=== PATIENT | male | born 1975 | race Hispanic/Latino ===

== ENCOUNTER 2018-09-15 08:14 | Emergency (ER) | payer BC ==
[2018-09-15] MEDS ORDERED: NA CHLORIDE 0.9% 1,000 ML ONE (09:11)
[2018-09-15] MEDS ORDERED: MECLIZINE HCL 12.5 MG TAB ONE (09:11)
--- NOTE | 2018-09-15 09:22 | RAD REPORT ---
EXAM DESCRIPTION: CT - Head Brain Wo Cont - 09/15/2018 9:00 am CLINICAL HISTORY: DIZZINESS Headache, drowsiness, dizziness and syncope. COMPARISON: No comparisons TECHNIQUE: All CT scans are performed using dose optimization technique as appropriate and may inclu de automated exposure control or mA/KV adjustment according to patient size. FINDINGS: No intracranial hemorrhage, hydrocephalus or extra-axial fluid collection.Mild generalized brain atrophy noted.No areas of brain edema or evidence of midline shift. The paranasal sinuses and mastoids are clear. The calvarium is intact. IMPRESSION: No acute intracranial abnormality.
[2018-09-15 09:37] LABS: Absolute Lymphocytes (CBC) 1.6 K/uL (0.7-4.9); Absolute Monocytes 0.5 K/uL (0.1-1.3); Absolute Neutrophil 7.2 K/uL (1.8-8.0); Basophils % 1.3 % (0-1.3); Eosinophils % 1.2 % (0-4.4); Lymphocytes % 16.9 % (15.3-44.8); MPV 9.6 fL (7.6-11.3); Monocytes % 5.3 % (3.3-12.3); RBC Red Blood Cell Count 5.74 M/uL (4.33-5.43)
[2018-09-15 09:59] LABS: BUN Blood Urea Nitrogen 19 mg/dL (7-18); Bicarbonate 27 mmol/L (21-32); Glucose Level 171 mg/dL (74-106); Potassium 3.9 mmol/L (3.5-5.1); Sodium Level 138 mmol/L (136-145); Troponin (Emerg Dept Use Only) < 0.02 ng/mL (0.0-0.045)
--- NOTE | 2018-09-15 10:48 | EDPHYS ---
Physician Documentation [facility] Name: Naresh Deleon Jr Age: 43 yrs Sex: Male : 1975 Arrival Date: 09/15/2018 Time: 08:17 Bed 15 Private MD: Edmund Leo ED Physician Von Bradshaw HPI: 09/15 08:53 This 43 yrs old Male presents to ER via Ambulatory with complaints of High rn Blood Sugar, Dizziness. 08:53 The patient presents with lightheadedness, sense of spinning. Onset: The rn symptoms/episode began/occurred last night. Modifying factors: The symptoms are alleviated by nothing, the symptoms are aggravated by movement of head, standing up, changing position. Severity of symptoms: At their worst the symptoms were mild in the emergency department the symptoms have improved. The patient has not experienced similar symptoms in the past. Reports started feeling dizzy last night, got better, woke up and dizzy again when getting out of bed, lasts less than 1 minute, not assoc with other neurological problems, no head trauma, reports blood sugar a little high, has been drinking water, no fever. Symptoms intermittent. No chest pain/sob. . Historical: - Allergies: 08:26 No Known Allergies; ss - Home Meds: 08:26 Ramipril Oral [Active]; pravastatin oral oral [Active]; Metformin Oral [Active]; ss Glimepiride Oral [Active]; Jardiance oral oral [Active]; Zyrtec Oral [Active]; aspirin 81 mg Oral TbEC 1 tab once daily [Active]; Nexium Oral [Active]; - PMHx: 08:26 Diabetes - NIDDM; Hypertension; High Cholesterol; GERD; ss - PSHx: 08:26 None; ss - Immunization history:: Adult Immunizations up to date. - Social history:: Smoking status: Patient/guardian denies using tobacco, the patient reports quitting approximately .25 years ago. - Ebola Screening: : Patient denies exposure to infectious person Patient denies travel to an Ebola-affected area in the 21 days before illness onset. - Family history:: not pertinent. - Hospitalizations: : No recent hospitalization is reported. ROS: 08:53 Constitutional: Negative for fever, chills, and weight loss, Eyes: Negative for injury, rn pain, redness, and discharge, Neck: Negative for injury, pain, and swelling, Cardiovascular: Negative for chest pain, palpitations, and edema, Respiratory: Negative for shortness of breath, cough, wheezing, and pleuritic chest pain, Abdomen/GI: Negative for abdominal pain, vomiting, diarrhea, and constipation, MS/Extremity: Negative for injury and deformity, Skin: Negative for injury, rash, and discoloration, Neuro: Negative for headache, numbness, tingling, and seizure. Exam: 08:53 Constitutional: This is a well developed, well nourished patient who is awake, alert, rn and in no acute distress. Head/Face: Normocephalic, atraumatic. Eyes: Pupils equal round and reactive to light, extra-ocular motions intact. Lids and lashes normal. Conjunctiva and sclera are non-icteric and not injected. Cornea within normal limits. Periorbital areas with no swelling, redness, or edema. ENT: dry MM Cardiovascular: Regular rate and rhythm. No pulse deficits. Respiratory: Lungs have equal breath sounds bilaterally, clear to auscultation. No increased work of breathing, no retractions or nasal flaring. Abdomen/GI: Soft, non-tender, with normal bowel sounds. No distension or tympany. No guarding or rebound. No evidence of tenderness throughout. Skin: Warm, dry MS/ Extremity: Pulses equal, no cyanosis. Neurovascular intact. Full, normal range of motion. Equal circumference. Neuro: Awake and alert, GCS 15, oriented to person, place, time, and situation. Cranial nerves II-XII grossly intact. Motor strength 5/5 in all extremities. Sensory grossly intact. Cerebellar exam normal. Normal gait. 09:36 ECG was reviewed by the Attending Physician. rn Vital Signs: 08:26 BP 171 / 98; Pulse 92; Resp 16; Temp 98.2(TE); Pulse Ox 99% on R/A; Weight 99.34 kg; ss Height 5 ft. 5 in. (165.10 cm); Pain 0/10; 10:05 BP 155 / 92; Pulse 82; Resp 18; Pulse Ox 98% on R/A; ph 10:57 BP 164 / 91; Pulse 75; Resp 18; Temp 98.0; Pulse Ox 100% on R/A; ph 08:26 Body Mass Index 36.44 (99.34 kg, 165.10 cm) MDM: 08:38 Patient medically screened. rn 09:33 ED course: CT head negative, ambulatory without difficulty to bathroom.. rn 10:45 Differential diagnosis: generalized weakness, hypovolemia, idiopathic dizziness, rn vertigo. Data reviewed: vital signs, nurses notes, lab test result(s), EKG, radiologic studies, CT scan, and as a result, I will discharge patient. Counseling: I had a detailed discussion with the patient and/or guardian regarding: the historical points, exam findings, and any diagnostic results supporting the discharge/admit diagnosis, lab results, radiology results, the need for outpatient follow up, to return to the emergency department if symptoms worsen or persist or if there are any questions or concerns that arise at home. Response to treatment: the patient's symptoms have markedly improved after treatment, and as a result, I will discharge patient. Special discussion: I discussed with the patient/guardian in detail that at this point there is no indication for admission to the hospital. It is understood, however, that if the symptoms persist or worsen the patient needs to return immediately for re-evaluation. Based on the history and exam findings, there is no indication for further emergent testing or inpatient evaluation. I discussed with the patient/guardian the need to see the primary care provider for further evaluation of the symptoms. ED course: Pt ambulatory, normal neuro exam, ct head negative, + mild dehydration and mild hyperglycemia, will dc home with meclizine given most likely vertigo vs dehydration.. 09/15 08:49 Order name: CBC with Diff; Complete Time: 10:15 rn 09/15 08:49 Order name: Basic Metabolic Panel; Complete Time: 10:15 rn 09/15 08:49 Order name: CT Head Brain wo Cont; Complete Time: 09:33 rn 09/15 08:49 Order name: Troponin (emerg Dept Use Only); Complete Time: 10:15 rn 09/15 08:27 Order name: EKG; Complete Time: 08:27 ss 09/15 08:27 Order name: Glucose Level; Complete Time: 08:27 09/15 08:49 Order name: IV Start; Complete Time: 09:42 rn EC:36 Rate is 79 beats/min. Rhythm is regular. QRS Bradley is Normal. OK interval is normal. QRS rn interval is normal. QT interval is normal. No Q waves. T waves are Inverted in lead aVL. No ST changes noted. Clinical impression: NSR w/ Non-specific ST/T Changes. Interpreted by me. Reviewed by me. Administered Medications: 09:15 Drug: Meclizine 50 mg Route: PO; ph 10:58 Follow up: Response: No adverse reaction ph 09:20 Drug: NS 0.9% 1000 ml Route: IV; Rate: 1000 ml; Site: right hand; ph 10:58 Follow up: Response: No adverse reaction; IV Status: Completed infusion; IV Intake: ph 1000ml Point of Care Testing: Blood Glucose: 08:27 Blood Glucose: 174 mg/dL; Ranges: Critical Glucose Levels:Adult <50 mg/dl or >400 mg/dl <40 mg/dl or >180 mg/dl Disposition: 09/15/18 10:47 Discharged to Home. Impression: Vertigo, Hyperglycemia, unspecified, Dizziness and giddiness, Dehydration. - Condition is Stable. - Discharge Instructions: Dehydration, Adult, Dizziness, Hyperglycemia. - Prescriptions for Meclizine 25 mg Oral Tablet - take 1 tablet by ORAL route every 8 hours As needed; 30 tablet. - Medication Reconciliation Form, Thank You Letter, Antibiotic Education, Prescription Opioid Use, Work release form form. - Follow up: Private Physician; When: As needed; Reason: Recheck today's complaints, Re-evaluation by your physician. - Problem is new. - Symptoms have improved. Signatures: Dispatcher [employer] EDVon Redmond MD MD rn Smirch, Shelby, RN RN Becca Holt RN RN ph Corrections: (The following items were deleted from the chart) 11:09 10:47 09/15/2018 10:47 Discharged to Home. Impression: Vertigo; Hyperglycemia, ph unspecified; Dizziness and giddiness; Dehydration. Condition is Stable. Forms are Medication Reconciliation Form, Thank You Letter, Antibiotic Education, Prescription Opioid Use. Follow up: Private Physician; When: As needed; Reason: Recheck today's complaints, Re-evaluation by your physician. Problem is new. Symptoms have improved. rn
--- NOTE | 2018-09-15 10:48 | ER ---
Nurse's Notes [facility] Name: Naresh Deleon Jr Age: 43 yrs Sex: Male : 1975 Arrival Date: 09/15/2018 Time: 08:17 Bed 15 Private MD: Edmund Leo Diagnosis: Vertigo;Hyperglycemia, unspecified;Dizziness and giddiness;Dehydration Presentation: 09/15 08:22 Presenting complaint: Patient states: Dizziness, sweating and nausea that occurred when ss patient woke up at 0530 this morning, lasting approximately 30 minutes. Pt is diabetic so he checked his sugar twice this morning (226, 208). Pt reports that he feels much better, but is still dizzy especially when he turns his head or repositioning quickly which quickly resolves. Transition of care: patient was not received from another setting of care. Onset of symptoms was September 15, 2018. Risk Assessment: Do you want to hurt yourself or someone else? Patient reports no desire to harm self or others. Initial Sepsis Screen: Does the patient meet any 2 criteria? No. Patient's initial sepsis screen is negative. Does the patient have a suspected source of infection? No. Patient's initial sepsis screen is negative. Care prior to arrival: None. 08:22 Method Of Arrival: Ambulatory ss 08:22 Acuity: IVETT 3 ss Historical: - Allergies: 08:26 No Known Allergies; ss - Home Meds: 08:26 Ramipril Oral [Active]; pravastatin oral oral [Active]; Metformin Oral [Active]; ss Glimepiride Oral [Active]; Jardiance oral oral [Active]; Zyrtec Oral [Active]; aspirin 81 mg Oral TbEC 1 tab once daily [Active]; Nexium Oral [Active]; - PMHx: 08:26 Diabetes - NIDDM; Hypertension; High Cholesterol; GERD; ss - PSHx: 08:26 None; ss - Immunization history:: Adult Immunizations up to date. - Social history:: Smoking status: Patient/guardian denies using tobacco, the patient reports quitting approximately .25 years ago. - Ebola Screening: : Patient denies exposure to infectious person Patient denies travel to an Ebola-affected area in the 21 days before illness onset. - Family history:: not pertinent. - Hospitalizations: : No recent hospitalization is reported. Screenin:05 Abuse screen: Denies threats or abuse. Denies injuries from another. Nutritional ph screening: No deficits noted. Tuberculosis screening: No symptoms or risk factors identified. Fall Risk None identified. Assessment: 09:00 General: Appears in no apparent distress. comfortable, well groomed, Behavior is calm, ph cooperative, appropriate for age, Denies fever, feeling ill. Pain: Complains of pain in forehead. Neuro: Level of Consciousness is awake, alert, obeys commands, Oriented to person, place, time, situation, Splitter Head are equal bilaterally Moves all extremities. Full function Gait is steady, Speech is normal, Reports dizziness, since 0330 headache frontal area. Cardiovascular: Capillary refill < 3 seconds in bilateral fingers Patient's skin is warm and dry. Respiratory: Airway is patent Respiratory effort is even, unlabored. 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 Derm: Skin is intact, is healthy with good turgor, Skin is pink, warm \T\ dry. Musculoskeletal: Circulation, motion, and sensation intact. Range of motion: intact in all extremities. 10:00 Reassessment: Patient appears in no apparent distress at this time. Patient and/or ph family updated on plan of care and expected duration. Pain level reassessed. Patient is alert, oriented x 3, equal unlabored respirations, skin warm/dry/pink. 10:53 Reassessment: Patient appears in no apparent distress at this time. Patient and/or ph family updated on plan of care and expected duration. Pain level reassessed. Patient is alert, oriented x 3, equal unlabored respirations, skin warm/dry/pink. Dr Bradshaw at bedside to speak w/ pt about results. Vital Signs: 08:26 BP 171 / 98; Pulse 92; Resp 16; Temp 98.2(TE); Pulse Ox 99% on R/A; Weight 99.34 kg; Height 5 ft. 5 in. (165.10 cm); Pain 0/10; 10:05 BP 155 / 92; Pulse 82; Resp 18; Pulse Ox 98% on R/A; ph 10:57 BP 164 / 91; Pulse 75; Resp 18; Temp 98.0; Pulse Ox 100% on R/A; ph 08:26 Body Mass Index 36.44 (99.34 kg, 165.10 cm) ED Course: 08:17 Patient arrived in ED. as 08:17 Edmund Leo MD is Private Physician. as 08:24 Triage completed. ss 08:26 Arm band placed on right wrist. ss 08:37 Becca Holt RN is Primary Nurse. ph 08:38 Von Bradshaw MD is Attending Physician. rn 08:43 EKG done, by wellfield technician. reviewed by Von Bradshaw MD. at1 08:59 CT completed. Patient tolerated procedure well. Patient moved to CT via wheelchair. Patient moved back from CT. 09:00 CT Head Brain wo Cont In Process Unspecified. EDMS 10:04 Patient has correct armband on for positive identification. Placed in gown. Bed in low ph position. Side rails up X 1. Pulse ox on. NIBP on. Door closed. Noise minimized. Warm blanket given. 10:57 No provider procedures requiring assistance completed. IV discontinued, intact, ph bleeding controlled, No redness/swelling at site. Pressure dressing applied. Administered Medications: 09:15 Drug: Meclizine 50 mg Route: PO; ph 10:58 Follow up: Response: No adverse reaction ph 09:20 Drug: NS 0.9% 1000 ml Route: IV; Rate: 1000 ml; Site: right hand; ph 10:58 Follow up: Response: No adverse reaction; IV Status: Completed infusion; IV Intake: ph 1000ml Point of Care Testing: Blood Glucose: 08:27 Blood Glucose: 174 mg/dL; Ranges: Intake: 10:58 IV: 1000ml; Total: 1000ml. ph Outcome: 10:47 Discharge ordered by . rn 11:09 Discharged to home ambulatory. ph 11:09 Condition: good 11:09 Discharge instructions given to patient, Instructed on discharge instructions, follow up and referral plans. medication usage, Demonstrated understanding of instructions, follow-up care, medications, Prescriptions given X 1. 11:09 Patient left the ED. ph Signatures: Dispatcher [employer] EDRI Yeni Guadalupe Amelia as Nieto, Roman, MD MD rn Smirch, Shelby, RN RN Sakshi Smith, astrobiologist EKG Tat1 Becca Holt RN RN ph
[2018-09-15 11:16] VITALS: BP 164/91; TEMP 98; O2SAT 100
--- NOTE | 2018-09-15 11:55 | EKG ---
Test Date: 2018-09-15 Test Time: 08:36:22 Segmental Paving Supervisor: CARLO MEASUREMENT RESULTS: Intervals: Rate: 79 WV: 156 QRSD: 84 QT: 360 QTc: 412 [place]: P: 50 WV: 156 QRS: 23 T: 63 INTERPRETIVE STATEMENTS: Normal sinus rhythm Nonspecific T wave abnormality Abnormal ECG Compared to ECG 05/20/2014 01:56:59 Left ventricular hypertrophy no longer present T-wave abnormality still present Electronically Signed On 09-15-18 11:53:44 CDT by Gera Liu
== END 2018-09-15 11:09 | disposition home or self-care (01) ==
LOC: ER 08:14
DX: E11.65 Type 2 diabetes mellitus with hyperglycemia (principal); E86.0 Dehydration; I10 Essential (primary) hypertension; E78.00 Pure hypercholesterolemia, unspecified; Z79.82 Long term (current) use of aspirin
CPT/HCPCS: 36415; 70450; 80048; 82962; 84484; 85025; 93005; J7030

== ENCOUNTER 2021-09-11 16:42 | Observation (INO) | payer BC ==
--- OUTSIDE RECORDS SUMMARY | 2021-09-11 16:44 | XMS REPORT | Continuity of Care Document ---
:1975 Author Organization [facility] t Address 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 0-16 ity of mellitus mellitus 00:00: [place] without without 00 Medical complicati complicati Br anch on on Essential Essential Disease Active 2014-05 Uni vers hypertensi hypertensi 0-16 it y of on on 00:00: [address] Hyperchole Hyperchole Disease Active 2014-05 U nivers sterolemia sterolemia 0-16 it y of 00:00: [address] Anxiety Anxiety Disease Active 2014-05 Univers 0-16 ity of 00:00: [address] Hypogonadi Hypogonadi Disease Active 2014-05 U nivers sm male sm male 0-16 ity of 00:00: [address] Allergies, Adverse Reactions, Alerts Allergy Allergy Status Severity Reaction(s) Onset Inactive Treating Comm ents Source Name Type Date Date Clinician NO KNOWN Drug Active Univers ALLERGIE Class ity of S [facility] Social History Social Habit Start Date Stop Date Quantity Comments Source History [facility] o f Alcohol Frequency [place] [facility] History [facility] o f Alcohol Std Drinks [place] [facility] [place] History [facility] University o f Alcohol Binge [facility] al [place] History of tobacco Cigarette Smoker University of use [facility] Exposure to Not sure University of SARS-CoV-2 (event) [facility] Alcohol intake 2021-08-10 2021-08-10 .86 /d University of 00:00:00 00:00:00 [facility] Cigarettes smoked 2016-08-03 2016-08-03 Univers ity of current (pack per 00:00:00 00:00:00 ) - Reported Branch Cigarette 2016-08-03 2016-08-03 University of pack-years 00:00:00 00:00:00 [facility] Tobacco use and 2016-08-03 2016-08-03 Never used Universit y of exposure 00:00:00 00:00:00 [facility] Alcohol Comment 2015-03-04 2015-03-04 not often Universit y of 00:00:00 00:00:00 [facility] Sex Ass[birth year] At [birth year] Universit y of 00:00:00 00:00:00 [facility] Smoking Status Start Date Stop Date Source Former smoker 2016-08-03 00:00:00 2016-08-03 00:00:00 Universi ty of [facility] Medications Ordered Filled Start Stop Current Ordering Indication Dosage Frequency Signature Comments Components Source Medication Medication Date Date Medication? Clinician (SIG) Name Name franky 2021- No [id number] 200mg Univers e cypionate 09-05 ity of (DEPO-TESTO 22:45: 21:35 [facility]) 00 :00 Medical injection Branch 200 mg testosteron 2021- No [id number] 200mg 200 mg, Univers e cypionate 09-05 Intramuscu i ty of (DEPO-TESTO 22:45: 21:35 lar, ONCE, [facility]) 00 :00 1 dose, On Medic al injection Tue Branch 200 mg 09/05/21 at 1745, Routine GLIMEPIRIDE Yes [id number] TAKE ONE Univers 4 mg tablet 4-11 TABLET BY ity of 00:00: MOUTH [place] 00 DAILY Medical Branch PRAVASTATIN Yes [id number] TAKE ONE Univers 40 mg 3-16 TABLET BY ity of tablet 00:00: MOUTH AT [place] 00 BEDTIME Medical Branch METFORMIN Yes [id number] TAKE TWO Univers ER 500 mg 3-03 TABLETS BY ity of 24 hr 00:00: MOUTH [place] tablet 00 TWICE A Medical DAY Branch RAMIPRIL 10 Yes [id number] TAKE ONE Univers mg capsule 3-03 CAPSULE BY ity of 00:00: MOUTH [place] 00 DAILY Medical Branch BUSPIRONE Yes [id number] TAKE ONE Univers 10 mg 2-10 TABLET BY ity of tablet 00:00: MOUTH [place] 00 TWICE A Medical DAY Branch TRULICITY Yes [id number] INJECT U nivers 0.75 mg/0.5 2-08 0.75 MG ity o f mL PnIj 00:00: UNDER THE [place] 00 SKIN ONCE Medical WEEKLY Branch AMLODIPINE Yes [id number] TAKE ONE Univers 5 mg tablet 8-30 TABLET BY ity of 00:00: MOUTH [place] 00 DAILY Medical Branch JARDIANCE Yes [id number] TAKE ONE Univers 7-27 TABLET BY ity of 00:00: MOUTH DAILY Medical Branch FML FORTE Yes [id number] PLACE 1 Univers 0.25 % 4-09 02 DROP IN ity of ophthalmic 00:00: EACH EYE Karri as suspension 00 TWICE Medical DAILY Branch fluticasone 2019-05 Yes [id number] 2{spray Use 2 Univers propionate 2-30 } Sprays in ity of 50 00:00: each [place] mcg/actuati 00 nostril Medic al on nasal daily. Branch spray blood sugar Yes [id number] TEST 1-2 Univers diagnostic 9-18 TIMES PER ity of (CONTOUR 00:00: DAY [place] NEXT TEST 00 Medical STRIPS) Branch strip Immunizations Ordered Filled Immunization Date Status Comments [facility] e Immunization Name Name SARS-COV-2 COVID-19 2021-06-30 Completed Unive rsity of PFIZER ASHLYN-SUCROSE 00:00:00 [place] Medical VACCINE (MUSE TOP) Branch SARS-COV-2 COVID-19 2021-06-30 Completed Unive rsity of PFIZER VACCINE 00:00:00 [facility] SARS-COV-2 COVID-19 2020-12-30 Completed Unive rsity of PFIZER VACCINE 00:00:00 [facility] SARS-COV-2 COVID-19 2020-12-09 Completed Unive rsity of PFIZER VACCINE 00:00:00 [facility] Vital Signs Vital Name Observation Time Observation Value Comments Source Systolic blood 2021-09-05 21:15:00 153 mm[Hg] Donna soliz [facility] Diastolic blood 2021-09-05 21:15:00 92 mm[Hg] Trudy bustamante [facility] Heart rate 2021-09-05 21:14:00 80 /min [facility] Body height 2021-09-05 21:14:00 167.6 cm [facility] Body weight 2021-09-05 21:14:00 99.338 kg [facility] BMI 2021-09-05 21:14:00 35.35 kg/m2 [facility] Procedures This patient has no known procedures. Encounters Start End Encounter Admission Attending Care Care Encounter Source Date/Time Date/Time Type Type Clinicians Facility Department ID 2021-09-05 2021-09-05 Office Felipa [facility] [id number] [facility] 16:15:00 16:37:22 [place] [id number] it y of Yrn [place] [id number] Karri as LAVELLE?BLEA [phone] [id number] MEDICAL OFFICE BUILDING 2021-09-05 2021-09-05 Outpatient R FELIPA [facility] [id number] Univers 16:15:00 16:37:22 ROSALBA corral [facility] 2020-02-19 2020-02-19 Office FelipaRUST [id number] 08:44:41 09:32:32 Visit [facility] [id number] [facility] [id number] Professio [phone] [place] [address] [address] Results This patient has no known results.
[2021-09-11] MEDS ORDERED: NITROGLYCERIN 0.4 MG/TAB SL ONE (17:21)
[2021-09-11] MEDS ORDERED: ASPIRIN 81 MG CHEWABLE TABLET ONE (17:21)
[2021-09-11] MEDS ORDERED: NA CHLORIDE 0.9% 500 ML ONE (17:21)
[2021-09-11 17:33] LABS: Absolute Lymphocytes (CBC) 1.9 K/uL (0.7-4.9); Hematocrit 46.4 % (39.6-49.0); Lymphocytes % 22.6 % (15.3-44.8); MPV 8.6 fL (7.6-11.3); RBC Red Blood Cell Count 5.48 M/uL (4.33-5.43)
[2021-09-11 17:47] LABS: Protime INR 0.92
--- NOTE | 2021-09-11 17:56 | RAD REPORT ---
EXAM DESCRIPTION: RAD - Chest Single View - 09/11/2021 5:46 pm CLINICAL HISTORY: CHEST PAIN COMPARISON: CHEST SINGLE VIEW dated 05/20/2014; CHEST SINGLE VIEW dated 08/22/2011 FINDINGS: Lines: None. Lungs: No evidence of edema or pneumonia. Pleural: No significant pleural effusions or pneumothorax. Cardiac: The heart size is within normal limits. Bones: No acute fractures. Other: IMPRESSION: No acute cardiopulmonary disease.
[2021-09-11 17:58] LABS: ALT/SGPT 57 U/L (12-78); AST/SGOT 19 U/L (15-37); BUN Blood Urea Nitrogen 11 mg/dL (7-18); Bicarbonate 27 mmol/L (21-32); Glucose Level 225 mg/dL (74-106); Potassium 3.4 mmol/L (3.5-5.1); Sodium Level 136 mmol/L (136-145)
[2021-09-11 17:59] LABS: Albumin 3.6 g/dL (3.4-5.0); Alkaline Phosphatase 76 U/L (45-117); Bilirubin Total 0.4 mg/dL (0.2-1.0); Magnesium 2.3 mg/dL (1.8-2.4); NT PRO-BNP 19 pg/mL (<125); Protein, Total 7.8 g/dL (6.4-8.2); Troponin High Sensitivity 11.4 pg/mL (<58.9)
[2021-09-11 18:03] LABS: Bilirubin Direct < 0.1 mg/dL (0-0.2)
[2021-09-11] MEDS ORDERED: POTASSIUM 25 MEQ EFFERV TAB ONE (18:52)
--- NOTE | 2021-09-11 18:57 | EDPHYS ---
Physician Documentation [facility] Name: Naresh Deleon Jr Age: 46 yrs Sex: Male : 1975 Arrival Date: 09/11/2021 Time: 16:43 Bed 23 Private MD: ED Physician Von Bradshaw HPI: 09/11 17:05 This 46 yrs old Male presents to ER via Ambulatory with complaints of Chest cp Pressure, Neck and Upper Back Pain. 17:05 The patient or guardian reports chest pain that is located primarily in the anterior cp chest wall, left. 17:05 Onset: last night, and became worse today. The pain radiates to cp 17:05 Associated signs and symptoms: Pertinent negatives: abdominal pain, diaphoresis, cp dizziness, lower extremity pain, lower extremity swelling, shortness of breath. The chest pain is described as a pressure. Duration: The patient or guardian reports multiple episodes, that are intermittent. Historical: - Allergies: 16:46 No Known Allergies; aa5 - PMHx: 16:46 Diabetes - NIDDM; GERD; High Cholesterol; Hypertension; aa5 - PSHx: 16:46 None; aa5 - Immunization history:: Adult Immunizations unknown. - Social history:: Smoking status: Patient/guardian denies using tobacco. ROS: 17:08 Constitutional: Negative for body aches, chills, fever, poor PO intake. cp 17:08 Eyes: Negative for injury, pain, redness, and discharge. cp 17:08 Cardiovascular: Positive for chest pain, Negative for edema, palpitations. cp 17:08 Respiratory: Negative for cough, shortness of breath, wheezing. cp 17:08 Abdomen/GI: Negative for abdominal pain, vomiting, diarrhea, constipation. 17:08 Back: Positive for radiated pain. 17:08 : Negative for urinary symptoms. 17:08 Neuro: Negative for altered mental status, headache, numbness, weakness. 17:08 All other systems are negative. Exam: 17:00 ECG was reviewed by the Attending Physician. cp 09/12 17:15 Constitutional: The patient appears in no acute distress, alert, awake, cp non-diaphoretic, non-toxic, well developed, well nourished, obese. 17:15 Head/Face: Normocephalic, atraumatic. cp 17:15 Eyes: Periorbital structures: appear normal, Conjunctiva: normal, no exudate, no injection, Sclera: no appreciated abnormality, Lids and lashes: appear normal, bilaterally. 17:15 ENT: External ear(s): are unremarkable, Nose: is normal, Mouth: is normal, Posterior pharynx: Airway: no evidence of obstruction, patent. 17:15 Neck: ROM/movement: is normal, is supple, without pain, no range of motions limitations, no nuchal rigidity. 17:15 Chest/axilla: Inspection: normal, Palpation: is normal, no crepitus, no tenderness. 17:15 Cardiovascular: Rate: tachycardic, Rhythm: regular, Pulses: Pulses are 2+ in right radial artery and left radial artery. Edema: is not appreciated, JVD: is not appreciated. 17:15 Respiratory: the patient does not display signs of respiratory distress, Respirations: normal, no use of accessory muscles, no retractions, labored breathing, is not present, Breath sounds: are clear throughout, no decreased breath sounds, no stridor, no wheezing. 17:15 Abdomen/GI: Inspection: abdomen appears normal, Palpation: abdomen is soft and non-tender, in all quadrants. 17:15 Back: pain, that is mild, of the left trapezius, right trapezius, left scapular area and right scapular area, ROM is normal. 17:15 Skin: no rash present. 17:15 Neuro: Orientation: to person, place \\T\\ time. Mentation: is normal, Motor: moves all fours, strength is normal, Sensation: is normal. Vital Signs: 09/11 16:45 BP 166 / 102; Pulse 105; Resp 18 S; Temp 98.3(TE); Pulse Ox 99% on R/A; Weight 97.07 kg aa5 (R); Height 5 ft. 5 in. (165.10 cm) (R); 17:49 BP 139 / 88; Pulse 95; Pulse Ox 99% on R/A; ap3 18:33 BP 148 / 89; Pulse 96; Pulse Ox 100% on R/A; ap3 19:19 BP 141 / 83; Pulse 90; Resp 17; Pulse Ox 100% on R/A; sm5 22:25 BP 140 / 96; Pulse 85; Resp 17; Pulse Ox 99% on R/A; ld1 23:03 BP 145 / 92; Pulse 81; Resp 11; Pulse Ox 99% on R/A; ld1 16:45 Body Mass Index 35.61 (97.07 kg, 165.10 cm) aa5 MDM: 16:55 Patient medically screened. cp 18:50 Data reviewed: vital signs, nurses notes, lab test result(s), EKG, radiologic studies, cp plain films. 18:50 The patient was given aspirin in the Emergency Department. Test interpretation: by ED cp physician or midlevel provider: ECG, plain radiologic studies. Counseling: I had a detailed discussion with the patient and/or guardian regarding: the historical points, exam findings, and any diagnostic results supporting the discharge/admit diagnosis, lab results, radiology results, the need for further work-up and treatment in the hospital. Response to treatment: the patient's symptoms have markedly improved after treatment, and as a result, I will admit patient. 18:55 Physician consultation: Shashank Vargas was called at 18:55, was contacted at 18:55, cp regarding admission, to the telemetry unit. patient's condition. 09/11 17:01 Order name: Basic Metabolic Panel; Complete Time: 18:43 cp 09/11 17:01 Order name: CBC with Diff; Complete Time: 18:43 cp 09/11 17:01 Order name: D-Dimer; Complete Time: 18:43 cp 09/11 17:01 Order name: LFT's; Complete Time: 18:43 cp 09/11 17:01 Order name: Magnesium; Complete Time: 18:43 cp 09/11 17:01 Order name: NT PRO-BNP; Complete Time: 18:43 cp 09/11 17:01 Order name: PT-INR; Complete Time: 18:43 cp 09/11 17:01 Order name: Troponin HS; Complete Time: 18:43 cp 09/11 19:01 Order name: SARS-COV-2 RT PCR (Document "Date of Onset" if Symptomatic); Complete Time: iw 20:08 09/11 23:12 Order name: Troponin High Sensitivity; Complete Time: 03:02 EDMS 09/12 05:20 Order name: CBC with Automated Diff EDIL 09/12 05:33 Order name: Comprehensive Metabolic Panel EDIL 09/12 05:33 Order name: Troponin High Sensitivity EDIL 09/11 17:01 Order name: XRAY Chest (1 view); Complete Time: 18:43 09/11 17:01 Order name: EKG; Complete Time: 17:02 09/11 17:01 Order name: Cardiac monitoring; Complete Time: 17:05 09/11 17:01 Order name: EKG - Nurse/Tech; Complete Time: 17:05 09/11 17:01 Order name: IV Saline Lock; Complete Time: 17:36 09/11 17:01 Order name: Labs collected and sent; Complete Time: 17:22 09/11 17:01 Order name: O2 Per Protocol; Complete Time: 17:05 09/11 17:01 Order name: O2 Sat Monitoring; Complete Time: 17:05 09/11 18:02 Order name: CT Aorta for Dissection; Complete Time: 20:08 09/11 20:09 Interpretation: Report reviewed. 09/12 05:33 Order name: Lipid Profile [facility] 09/12 08:16 Order name: Glucose, Ancillary Testing [facility] 09/12 11:43 Order name: Troponin High Sensitivity EDIL EC:00 Rate is 101 beats/min. Rhythm is regular. MS interval is normal. QRS interval is cp normal. QT interval is normal. T waves are Inverted in lead aVL. Interpreted by me. Reviewed by me. Administered Medications: 17:22 Drug: Aspirin Chewable Tablet 324 mg Route: PO; ap3 17:22 Drug: Nitroglycerin 0.4 mg Route: Sublingual; ap3 17:35 Drug: NS 0.9% 500 ml Route: IV; Rate: bolus; Site: right hand; ap3 18:51 Drug: Potassium Effervescent Tablet 50 mEq Route: PO; ap3 Disposition: 09/12 14:24 Co-signature as Attending Physician, Von Bradshaw MD. rn Disposition Summary: 09/11/21 18:57 Hospitalization Ordered Hospitalization Status: Observation cp Provider: Sanjeev Bradshaw cp Condition: Stable cp Problem: new cp Symptoms: have improved cp Bed/Room Type: Standard cp Location: Telemetry/MedSurg (Inpatient)(09/12/21 11:47) aa5 Room Assignment: [facility](09/12/21 11:47) aa5 Diagnosis - Chest pain, unspecified cp Forms: - Medication Reconciliation Form cp - SBAR form cp Signatures: Dispatcher [employer] EDMS Von Bradshaw MD MD rn Calderon, Audri RN RN aa5 Nii Ortega PA PA 8 Shashank Vargas, BHAVNA-C [employer]MICALS DISTILLER-Cla1 Zuhair Harvey PA PA cp Prokisch, Amanda, RN RN ap3 Corrections: (The following items were deleted from the chart) 09/11 17:46 17:16 TYPE AND SCREEN+[id number].LAB.BRZ ordered. EDIL EDIL 18:57 Telemetry/MedSurg (observation) [facility]8 18:57 [facility] 09/12 11:47 09/11 21:26 [facility] [place] [id number] aa5 09/12 11:47 09/11 21:26 [facility]- [facility] aa5
--- NOTE | 2021-09-11 18:57 | ER ---
Nurse's Notes [facility] Name: Naresh Deleon Jr Age: 46 yrs Sex: Male : 1975 Arrival Date: 09/11/2021 Time: 16:43 Bed 23 Private MD: Diagnosis: Chest pain, unspecified Presentation: 09/11 16:45 Chief complaint: Patient states: chest pain and upper back pain that began last night. aa5 Denies cough, denies SOB. Coronavirus screen: At this time, the client does not indicate any symptoms associated with coronavirus-19. Ebola Screen: No symptoms or risks identified at this time. Initial Sepsis Screen: Does the patient meet any 2 criteria? HR > 90 bpm. Does the patient have a suspected source of infection? No. Patient's initial sepsis screen is negative. Risk Assessment: Do you want to hurt yourself or someone else? Patient reports no desire to harm self or others. Onset of symptoms was August 2021. 16:45 Method Of Arrival: Ambulatory aa5 16:45 Acuity: IVETT 3 aa5 Historical: - Allergies: 16:46 No Known Allergies; aa5 - PMHx: 16:46 Diabetes - NIDDM; GERD; High Cholesterol; Hypertension; aa5 - PSHx: 16:46 None; aa5 - Immunization history:: Adult Immunizations unknown. - Social history:: Smoking status: Patient/guardian denies using tobacco. Screenin:58 Abuse screen: Denies threats or abuse. Nutritional screening: No deficits noted. ap3 Tuberculosis screening: No symptoms or risk factors identified. Fall Risk None identified. Assessment: 16:57 General: Appears in no apparent distress. comfortable, Behavior is calm, cooperative, ap3 appropriate for age. Pain: Complains of pain in chest Pain radiates to back and neck Quality of pain is described as nagging Pain began 1 day ago. Neuro: Level of Consciousness is awake, alert, obeys commands, Oriented to person, place, time, situation, Appropriate for age Stunt Driver are equal bilaterally Moves all extremities. Gait is steady, Speech is normal, Facial symmetry appears normal. Cardiovascular: Reports chest pain, Denies lightheadedness, shortness of breath, Chest pain began 1 day ago episodes are continuous. Respiratory: Airway is patent Respiratory effort is even, unlabored, Respiratory pattern is regular, symmetrical. 17:49 Reassessment: Patient and/or family updated on plan of care and expected duration. Pain ap3 level reassessed. Patient is alert, oriented x 3, equal unlabored respirations, skin warm/dry/pink. 18:33 Reassessment: Patient and/or family updated on plan of care and expected duration. Pain ap3 level reassessed. Patient is alert, oriented x 3, equal unlabored respirations, skin warm/dry/pink. patients is at the bedside at this time. 19:16 General: Appears in no apparent distress. Behavior is cooperative. Pain: Denies pain. sm5 Neuro: No deficits noted. Level of Consciousness is awake, alert, obeys commands, Oriented to person, place, time, situation. Cardiovascular: Capillary refill < 3 seconds Patient's skin is warm and dry. Respiratory: No deficits noted. Airway is patent Trachea midline Respiratory effort is even, unlabored. Vital Signs: 16:45 BP 166 / 102; Pulse 105; Resp 18 S; Temp 98.3(TE); Pulse Ox 99% on R/A; Weight 97.07 kg aa5 (R); Height 5 ft. 5 in. (165.10 cm) (R); 17:49 BP 139 / 88; Pulse 95; Pulse Ox 99% on R/A; ap3 18:33 BP 148 / 89; Pulse 96; Pulse Ox 100% on R/A; ap3 19:19 BP 141 / 83; Pulse 90; Resp 17; Pulse Ox 100% on R/A; sm5 22:25 BP 140 / 96; Pulse 85; Resp 17; Pulse Ox 99% on R/A; ld1 23:03 BP 145 / 92; Pulse 81; Resp 11; Pulse Ox 99% on R/A; ld1 16:45 Body Mass Index 35.61 (97.07 kg, 165.10 cm) aa5 ED Course: 16:43 Patient arrived in ED. as 16:46 Triage completed. aa5 16:46 Arm band placed on. aa5 16:48 Zuhair Harvey PA is PHCP. cp 16:48 Von Bradshaw MD is Attending Physician. cp 16:56 Sakshi Alvarez, JAS is Primary Nurse. ap3 16:57 EKG done, by ED staff, reviewed by Zuhair SMALL. ap3 16:58 Patient has correct armband on for positive identification. Placed in gown. Bed in low ap3 position. Call light in reach. Side rails up X2. pvc monitor on. Pulse ox on. NIBP on. Door closed. Noise minimized. 16:58 Patient maintains SpO2 saturation greater than 95% on room air. ap3 17:23 Basic Metabolic Panel Sent. mh5 17:23 CBC with Diff Sent. mh5 17:23 D-Dimer Sent. 5 17:23 LFT's Sent. 5 17:24 Magnesium Sent. 5 17:24 NT PRO-BNP Sent. 5 17:24 PT-INR Sent. 5 17:24 Troponin HS Sent. 5 17:24 Initial lab(s) drawn, by me, sent to lab. 5 17:34 Inserted saline lock: 22 gauge in right hand, using aseptic technique. ap3 17:47 XRAY Chest (1 view) In Process Unspecified. EDMS 18:56 Sanjeev Bradshaw MD is Hospitalizing Provider. cp 19:13 Primary Nurse role handed off by Sakshi Alvarez RN mw2 19:18 Elle Garcia, JAS is Primary Nurse. [facility] 19:34 Inserted saline lock: 20 gauge in right antecubital area, using aseptic technique. 5 19:35 IV discontinued, bleeding controlled, No redness/swelling at site. 22 R hand removed sm5 due to pt preference. 19:53 CT Aorta for Dissection In Process Unspecified. EDMS Administered Medications: 17:22 Drug: Aspirin Chewable Tablet 324 mg Route: PO; ap3 17:22 Drug: Nitroglycerin 0.4 mg Route: Sublingual; ap3 17:35 Drug: NS 0.9% 500 ml Route: IV; Rate: bolus; Site: right hand; ap3 18:51 Drug: Potassium Effervescent Tablet 50 mEq Route: PO; ap3 Outcome: 18:57 Decision to Hospitalize by Provider. cp 09/12 12:07 Patient left the ED. aa5 Signatures: Dispatcher [employer] EDMS Jaycee Rosa Audri RN RN aa5 Zuhair Harvey PA PA cp Martinez, Maria [facility] Sakshi Alvarez RN RN ap3 [place] Schwartz mw2 Dibbern, Natasha, RN RN ld1 Radha, Elle, RN RN sm5
--- NOTE | 2021-09-11 19:59 | P.HP ---
Certification for Inpatient Patient admitted to: Observation With expected LOS: <2 Midnights Patient will require the following post-hospital care: None Practitioner: I am a practitioner with admitting privileges, knowledge of patient current condition, hospital course, and medical plan of care. Services: Services provided to patient in accordance with Admission requirements found in Title 42 Section 412.3 of the Code of Federal Regulations Patient History Date of Service: 09/11/21 Reason for admission: Chest pain History of Present Illness: 46-year-old male with history of hypertension, diabetes mellitus type [id number], hyperlipidemia presents emergency department for chest pain. Patient reports that his pain began last night, when he began it was described as a tightness that was worse with deep breaths, cough and relieved by laying on his left side, he went to work today and noticed throughout the day that his pain was getting worse and since about 1500 until his presentation to the emergency department his pain became constant described as tightness radiating to his back no other associated symptoms were reported upon arrival to the ER he was given nitroglycerin which she states provided significant relief of his pain is initial troponin was negative EKG was unremarkable chest x-ray also unremarkable ED provider was to admit under observation for ACS rule out. Allergies No Known Drug Allergies Allergy (Unverified 05/20/14 03:26) Unknown Home Medications: Glimepiride [Amaryl*] 2 mg PO DAILY 08/22/11 Metformin HCl 500 mg PO BID 08/22/11 Pravastatin [Pravachol*] 40 mg PO DAILY 08/22/11 Ramipril [Altace] 10 mg PO DAILY 08/22/11 Aspirin 81 mg PO DAILY #0 tab.chew 08/23/11 - Past Medical/Surgical History Diabetic: Yes -: Diabetes mellitus type 2 -: Hypertension -: Hyperlipidemia -: none Psychosocial/ Personal History: Lives at home with family - Family History Father -: Heart disease Mother -: Heart disease - Social History Smoking Status: Never smoker Alcohol use: Yes CD- Drugs: No Caffeine use: Yes Place of Residence: Home Review of Systems 10-point ROS is otherwise unremarkable Cardiovascular: Chest Pain, As per HPI Physical Examination - Physical Exam General: Alert, In no apparent distress, Oriented x3 HEENT: Atraumatic, PERRLA, Mucous membr. moist/pink, EOMI, Sclerae nonicteric Neck: Supple, 2+ carotid pulse no bruit, No LAD, Without JVD or thyroid abnormality Respiratory: Clear to auscultation bilaterally, Normal air movement Cardiovascular: Regular rate/rhythm, Normal S1 S2 Gastrointestinal: Normal bowel sounds, No tenderness Musculoskeletal: No tenderness Integumentary: No rashes Neurological: Normal speech, Normal strength at 5/5 x4 extr, Normal tone, Normal affect - Studies Laboratory Data (last 24 hrs) 09/11/21 17:21: PT 10.1, INR 0.92 09/11/21 17:21: WBC 8.6, Hgb 15.5, Hct 46.4, Plt Count 256 09/11/21 17:21: Sodium 136, Potassium 3.4 L, BUN 11, Creatinine 0.99, Glucose 225 H, Magnesium 2.3, Total Bilirubin 0.4, AST 19, ALT 57, Alkaline Phosphatase 76 Assessment and Plan - Plan Assessment: Chest pain rule out ACS Diabetes mellitus type [id number] with hyperglycemia Hypertension Hyperlipidemia Hypokalemia Plan: Chest pain rule out ACS: Trend troponins, monitor on telemetry, aspirin, statin, beta-chandler therapy. Cardiology consult in place. Morphine/nitro Diabetes mellitus type [id number]-ceehrkx-qarilxeiz with hyperglycemia: ACH S Accu- Chek, sliding scale insulin. Hypertension: Continue home medications, started on beta-chandler given current chest pain. Hyperlipidemia: Continue statin Hypokalemia: Protocol in place DVT PPX: Lovenox Code status: Full Discharge Plan: Home Plan to discharge in: 24 Hours - Advance Directives Does patient have a Living Will: No Does patient have a Durable POA for Healthcare: No - Code Status/Comfort Care Code Status Assessed: Yes (Full code) Critical Care: No Time Spent Managing Pts Care (In Minutes): 55
--- NOTE | 2021-09-11 20:04 | RAD REPORT ---
EXAM DESCRIPTION: CTAngio Aorta For Dissection - 09/11/2021 7:51 pm CLINICAL HISTORY: chest pain/back pain COMPARISON: No comparisons TECHNIQUE: CT of the chest, abdomen, and pelvis was performed. All CT scans are performed using dose optimization technique as appropriate and may include automated exposure control or mA/KV adjustment according to patient size. FINDINGS: Thorax: Chest Wall: No abnormal mass Lungs: Noncalcified nodule right middle lobe measuring 9 millimeters. Pleura: No effusions or pneumothorax. Daysi/Mediastinum: No lymphadenopathy. Aorta/Pulmonary Arteries: Unremarkable Heart: Normal size. Abdomen/Pelvis: Liver: Hepatic steatosis Biliary: No biliary ductal dilatation. Stomach: No significant focal abnormality. Duodenum: No significant focal abnormality. Pancreas: No significant abnormality. Spleen: No significant abnormality. Adrenal: No suspicious lesions. Kidney/ureter: No hydronephrosis. No renal calculi. Retroperitoneum: No retroperitoneal adenopathy. Vascular: No aneurysm. Bowel: No significant focal abnormality. Normal appendix. Peritoneum: No ascites or free air. Bladder: Grossly unremarkable. Reproductive: No adnexal masses. Bones: No acute fracture. Bilateral SI joint ankylosis. Other: n/a IMPRESSION: No acute findings within the chest, abdomen, or pelvis. Specifically, no evidence of aor tic dissection or aneurysm. 9 mm nodule in the right middle lobe. No priors are available for comparison. Recommend 6 month follo w-up chest CT for further evaluation.
[2021-09-11] MEDS ORDERED: ONDANSETRON 4 MG/2 ML VIAL IV PRN (20:47)
[2021-09-11] MEDS ORDERED: NITROGLYCERIN 0.4 MG/TAB SL PRN (20:47)
[2021-09-11] MEDS ORDERED: MORPHINE 2 MG/ML SYR IV PRN (20:47)
[2021-09-11] MEDS: INSULIN -REGULAR HUMAN 50 UNIT/0.5 ML ML SQ SCH (21:00)
[2021-09-11] MEDS ORDERED: ATORVASTATIN 40 MG TAB PO SCH (21:00)
[2021-09-11 21:48] VITALS: BMI 35.6
[2021-09-12 05:16] LABS: Absolute Lymphocytes (CBC) 2.3 K/uL (0.7-4.9); Lymphocytes % 25.2 % (15.3-44.8); MPV 8.8 fL (7.6-11.3); RBC Red Blood Cell Count 5.25 M/uL (4.33-5.43)
[2021-09-12 05:21] LABS: ALT/SGPT 49 U/L (12-78); AST/SGOT 19 U/L (15-37); Albumin 3.2 g/dL (3.4-5.0); Alkaline Phosphatase 63 U/L (45-117); BUN Blood Urea Nitrogen 10 mg/dL (7-18); Bicarbonate 29 mmol/L (21-32); Bilirubin Total 0.4 mg/dL (0.2-1.0); Glucose Level 171 mg/dL (74-106); HDL Cholesterol 28 mg/dL (40-60); LDL Cholesterol, Calculated 42 mg/dL (<130); Potassium 3.8 mmol/L (3.5-5.1); Sodium Level 137 mmol/L (136-145)
[2021-09-12 05:33] LABS: Troponin High Sensitivity 74.8 pg/mL (<58.9)
[2021-09-12] MEDS ORDERED: POTASSIUM CL SA 10 MEQ TAB PO ONE ×2 (05:36→05:51)
[2021-09-12] MEDS ORDERED: METOPROLOL TAR 25 MG TAB ONE (05:51)
[2021-09-12] MEDS ORDERED: METOPROLOL TAR 25 MG TAB PO SCH (06:00)
--- NOTE | 2021-09-12 06:58 | P.PN ---
Date of Service: 09/12/21
[2021-09-12] MEDS: INSULIN -REGULAR HUMAN 50 UNIT/0.5 ML ML SQ SCH ×3 (07:30→16:30)
[2021-09-12] MEDS ORDERED: ASPIRIN EC 81 MG TAB PO ONE (08:33)
[2021-09-12] MEDS ORDERED: ENOXAPARIN 40 MG/0.4 ML SQ ONE (08:34)
[2021-09-12] MEDS ORDERED: ENOXAPARIN 40 MG/0.4 ML SQ SCH (09:00)
[2021-09-12] MEDS ORDERED: ASPIRIN EC 81 MG TAB PO SCH (09:00)
--- NOTE | 2021-09-12 09:33 | EKG ---
Test Date: 2021-09-11 Test Time: 16:54:04 Toe Closing Machine Tender: ALP MEASUREMENT RESULTS: Intervals: Rate: 101 OR: 168 QRSD: 76 QT: 324 QTc: 420 [place]: P: 54 OR: 168 QRS: 11 T: 46 INTERPRETIVE STATEMENTS: Sinus tachycardia Nonspecific T wave abnormality Abnormal ECG Compared to ECG 09/15/2018 08:36:22 Sinus rhythm no longer present T-wave abnormality still present Electronically Signed On 09-12-21 09:31:48 CDT by Mayank Hunter
[2021-09-12] MEDS ORDERED: NA CHLORIDE 0.9% 1,000 ML ONE (11:11)
[2021-09-12] MEDS ORDERED: MIDAZOLAM HCL 2 MG/2 ML INJ ONE ×2 (11:19→11:35)
[2021-09-12] MEDS ORDERED: FENTANYL CITR 100 MCG/2 ML ONE (11:35)
[2021-09-12] MEDS ORDERED: NA CHLORIDE 0.9% 1,000 ML IV SCH (13:00)
[2021-09-12] MEDS ORDERED: ACETAMINOPHEN 325 MG TABLET PO PRN (13:00)
--- NOTE | 2021-09-12 15:33 | CON ---
Date of Consultation: 09/12/2021 The patient admitted on 09/11/[address] Bradshaw with chest pain. I saw him on 09/12/2021 because of non-ST elevation myocardial infarction. History Of Present Illness: Mr. Deleon is 46, diabetic, hypertensive with dyslipidemia. Came in wit h chest pain radiating to the back and to the left shoulder with and without exertion without any megan sea, vomiting, diaphoresis, shortness of breath, PND, orthopnea, pedal edema, palpitation, or syncope . Denied any fever or chills. Past Medical History: As stated above. Allergies: NONE. Review of Systems: Negative. Social History: Negative. Family History: Positive for diabetes and heart disease. Medications: Listed by Dr. Bradshaw. Physical Examination: Vital Signs: Stable, afebrile. HEENT: Negative. Neck: Supple without any bruit, lymphadenopathy, JVD, or thyromegaly. Chest: Clear to auscultation and percussion. Cardiac: Revealed a regular rhythm and rate. No murmurs, gallops, or rubs. Abdomen: Benign. Extremities: Revealed no clubbing, cyanosis, or edema. Diagnostic Data: His EKG is unremarkable. Chest x-ray is negative. Creatinine is normal. Troponin was elevated. Impression And Plan: Non-ST elevation myocardial infarction in a patient with diabetes, hypertension , dyslipidemia. Plan for a left heart catheterization today to define his coronary anatomy. Continu e present regimen. Hold Lovenox. The patient understands the risk and the benefits of the procedure and he agrees to proceed. Case was discussed with Dr. Bradshaw. STEVE/PEMA Voice ID: [id number] Report ID: [id number]
--- NOTE | 2021-09-12 15:36 | P.DS ---
Admission Date: 09/11/21 Discharge Date: 09/12/21 Disposition: ROUTINE DISCHARGE Discharge Condition: GOOD Reason for Admission: Chest pain Consultations: Cardiology - Dr. Hunter Procedures: Problem List Chest pain Hypertension HLD NIDDM2 Brief History of Present Illness: 46yo M, PMH: HTN, NIDDM2, HLD Presented to ED after sudden onset of chest pain the night before. Described as a tightness and was worse with deep inspiration and relieved by laying on his left side. Pain worsened throughout the day as he worked and became more consis tent. Symptoms were relieved shortly after taking nitroglycerin in the ED. Initial troponin and EKG were normal. CT dissection noted incidental 9mm nodule in right middle lobe. Hospital Course: Patient's troponin was noted to be mildly elevated on the third check. EKG without ST elevation / depressions. Cardiology was consulted and took patient for cardiac catheterization which did not reveal any coronary artery disease, and patient did not require any further intervention. Patient's chest pain resolved after he received nitrogycerin tab in the ER. He was noted to have elevated blood pressure readings despite taking his medications. Dr. Hunter recommended adding metoprolol to his regimen. Recommend holding metoprolol if systolic blood pressure is <115 or heart rate is < 50. CT chest noted incidental 9mm nodule in right middle lobe. Recommend follow up CT in ~6 months. Follow up with PCP within 1 week. Vital Signs/Physical Exam: Temp Pulse Resp BP Pulse Ox 96.7 F L 89 15 119/76 96 09/12/21 12:00 09/12/21 12:15 09/12/21 12:15 09/12/21 12:15 09/12/21 12:00 General: Alert, In no apparent distress, Oriented x3 HEENT: Sclerae nonicteric Neck: Supple, No LAD Respiratory: Clear to auscultation bilaterally, Normal air movement Cardiovascular: No edema, Regular rate/rhythm, Normal S1 S2 Gastrointestinal: Soft and benign, Non-distended, No tenderness Musculoskeletal: No erythema, No tenderness Neurological: Normal speech, Normal affect Laboratory Data at Discharge: WBC 9.0 K/uL (4.3-10.9) 09/12/21 04:32 Hgb 14.8 g/dL (13.6-17.9) 09/12/21 04:32 Hct 44.0 % (39.6-49.0) 09/12/21 04:32 Plt Count 223 K/uL (152-406) 09/12/21 04:32 PT 10.1 SECONDS (9.5-12.5) 09/11/21 17:21 INR 0.92 09/11/21 17:21 Sodium 137 mmol/L (136-145) 09/12/21 04:32 Potassium 3.8 mmol/L (3.5-5.1) 09/12/21 04:32 BUN 10 mg/dL (7-18) 09/12/21 04:32 Creatinine 0.75 mg/dL (0.55-1.3) 09/12/21 04:32 Glucose 171 mg/dL (74-106) H 09/12/21 04:32 Magnesium 2.3 mg/dL (1.8-2.4) 09/11/21 17:21 Total Bilirubin 0.4 mg/dL (0.2-1.0) 09/12/21 04:32 AST 19 U/L (15-37) 09/12/21 04:32 ALT 49 U/L (12-78) 09/12/21 04:32 Alkaline Phosphatase 63 U/L (45-117) 09/12/21 04:32 Triglycerides 261 mg/dL (<150) H 09/12/21 04:32 Cholesterol 122 mg/dL (<200) 09/12/21 04:32 HDL Cholesterol 28 mg/dL (40-60) L 09/12/21 04:32 Cholesterol/HDL Ratio 4.36 09/12/21 04:32 Home Medications: Glimepiride [Amaryl*] 4 mg PO DAILY 08/22/11 Metformin HCl 500 mg PO BID 08/22/11 Pravastatin [Pravachol*] 40 mg PO DAILY 08/22/11 Ramipril [Altace] 10 mg PO DAILY 08/22/11 Aspirin 81 mg PO DAILY #0 tab.chew 08/23/11 Amlodipine [Norvasc*] 5 mg PO DAILY 09/12/21 Dulaglutide [Trulicity] 0.75 mg SQ EVERY 7TH DAY 09/12/21 Empagliflozin [Jardiance] 10 mg PO DAILY 09/12/21 Metoprolol Succinate [Toprol Xl] 25 mg PO DAILY 30 Days #30 tab.er.24h 09/12/21 New Medications: Metoprolol Succinate [Toprol Xl] 25 mg PO DAILY 30 Days #30 tab.er.24h Physician Discharge Instructions: Patient's troponin was noted to be mildly elevated on the third check. EKG without ST elevation / depressions. Cardiology was consulted and took patient for cardiac catheterization which did not reveal any coronary artery disease, and patient did not require any further intervention. Patient's chest pain remained resolved since received nitrogycerin tab in the ER. He was noted to have elevated blood pressure readings despite taking his medications. Dr. Hunter recommended adding metoprolol to his regimen. Recommend holding metoprolol if systolic blood pressure is <115 or heart rate is < 50. Follow up with PCP within 1 week. 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
[2021-09-12 18:03] VITALS: TEMP 97.2
[2021-09-12 18:13] VITALS: BP 139/83; O2SAT 97
--- NOTE | 2021-09-12 22:54 | OP ---
Date of Procedure: 09/12/2021 Surgeon: Mayank Hunter MD Director Facilities Maintenance: Ms. Sonya Zuniga. Indications: Admitted on 09/11/2021 with a non-STEMI. 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 A 6-English sheath introduced in the rig ht common femoral artery successfully. Angiography there was normal. Angio-Seal was used to close t he case. Nany catheter, left and right were used to cannulate the left main and right main respec tively. The left main was normal. A large vessel giving rise to the LAD and circumflex. Both of th em were free of disease. JR4 cannulated the right main that was free of disease as well. The patien t tolerated the procedure well. There were no complications. Blood Loss: 5 cc. Anesthesia: Total conscious sedation 45 minutes. Postoperative Diagnoses: Chest pain, positive troponin with normal coronaries. Plan: To continue medical therapy. Disposition: The patient will be going home today. I will discuss the case further with Dr. Leeann garcia nd the family. STEVE/PEMA Voice ID: [id number] Report ID: [id number]
== END 2021-09-12 17:27 | disposition home or self-care (01) ==
LOC: ER 16:42 → ERHOLD 20:32 → 2ND 09-12 13:06
PROVIDERS: ADMIT Hospitalist; ATTEND Hospitalist
PROC: B201YZZ Plain Radiography of Multiple Coronary Arteries using Other Contrast (ICD-10-PCS; principal; 2021-09-11)
DX: I21.4 Non-ST elevation (NSTEMI) myocardial infarction (principal); I10 Essential (primary) hypertension; E11.65 Type 2 diabetes mellitus with hyperglycemia; E78.5 Hyperlipidemia, unspecified; E87.6 Hypokalemia; K21.9 Gastro-esophageal reflux disease without esophagitis; R91.1 Solitary pulmonary nodule; Z79.84 Long term (current) use of oral hypoglycemic drugs; Z79.899 Other long term (current) drug therapy; Z20.822 Contact with and (suspected) exposure to COVID-19; Z82.49 Family history of ischemic heart disease and other diseases of the circulatory system; Z83.3 Family history of diabetes mellitus
CPT/HCPCS: 93005; 85025 ×2; 80048; 36415; 83735; 85610; 80061; 82947 ×3; 85379; 80076; 84484 ×4; 80053; 83880; 71275; 74175; 71045; 93454 ×2; 99285; U0003; Q9967 ×2; C1893; C1760; G0269; J1650; J2250 ×2; J3010; G0378 ×4; J7040; J7030